=== PATIENT | male | born 1965 | race African-American/Black ===

== ENCOUNTER 2016-05-13 14:09 | Emergency (ER) | payer OTHER ==
[~2016-05-13] VITALS: Ht 172.7 cm; Wt 63.5 kg
--- NOTE | ~2016-05-13 | EKG ---
[address] [place] [address] ELECTROCARDIOGRAM REPORT Name: AKOSUA CHAND, Room #: REG [facility]#: [id number] Admission: 05/13/16 Attend Phys: Discharge: Date of : 61 Report #: [id number] THIS REPORT FOR: //name// [facility] ED Test Date: 2016-05-13 Test Time: 15:16:08 Pat Name: AKOSUA CHAND Department: Room: Gender: Lapel Padder: MZOOK : 1965 Requested By: Francheska Valentine Order Number: [id number] MD: Jd Francis Measurements Intervals [place] Rate: 92 P: 70 OR: 172 QRS: 82 QRSD: 77 T: 18 QT: 356 QTc: 441 Interpretive Statements Sinus rhythm LAE, consider biatrial enlargement Borderline T wave abnormalities Minimal ST elevation, lateral leads No previous ECG available for comparison Electronically Signed On 05-13-2016 16:53:07 [employer]STRUCTOR [employer] by Jd Francis [email or web address] <ELECTRONICALLY SIGNED> By: Jd Francis MD 05/13/16 1653 1516 1516 Jd Francis MD /MAI
[2016-05-13 15:02] LABS: URINE BILIRUBIN NEGATIVE (Negative); URINE BLOOD NEGATIVE (Negative); URINE COLOR YELLOW; URINE GLUCOSE-RANDOM* NEGATIVE (Negative); URINE KETONES NEGATIVE (Negative); URINE NITRITE NEGATIVE (Negative); URINE PROTEIN (DIPSTICK) NEGATIVE (Negative); URINE SPECIFIC GRAVITY <= 1.005 (1.003-1.035); URINE UROBILINOGEN 0.2 E.U./dl (0.2-1.0)
[2016-05-13] MEDS ORDERED: FLOMAX0.4 MG PO (15:30)
[2016-05-13] MEDS ORDERED: NEURONTIN 300300 M1 PO (15:30)
[2016-05-13] MEDS ORDERED: NORVASC5 MG PO (15:30)
[2016-05-13] MEDS ORDERED: CARVEDILOL6.25 MG PO (15:31)
[2016-05-13] MEDS ORDERED: TOPROL XL25 MG PO (15:31)
[2016-05-13 15:40] LABS: ABSOLUTE NEUTROPHILS 2.3 thou/uL (1.4-8.2); BASOPHILS 0.7 % (0.0-2.0); EOSINOPHILS 6.9 % (0.0-3.0); HEMATOCRIT 38.3 % (42.0-52.0); LYMPHOCYTES 49.8 % (24.0-44.0); MCH 28.2 pg (26.0-34.0); MCHC 33.9 % (28.0-37.0); MCV 83.3 fL (80.0-100.0); MONOCYTES 7.8 % (1.0-8.0); PLATELET COUNT 416 thou/uL (150-400); POLYS 34.8 % (36.0-66.0); WBC 6.6 thou/uL (4.0-11.0)
[2016-05-13 15:43] LABS: MANUAL DIFF NO
[2016-05-13 15:56] LABS: ANION GAP 12 mmol/L (7-16); BUN 8 mg/dL (7-18); CALCIUM 8.4 mg/dL (8.5-10.1); CHLORIDE 108 mmol/L (98-107); CO2 27 mmol/L (21-32); GLUCOSE 89 mg/dL (70-99); POTASSIUM 4.2 mmol/L (3.5-5.1); SODIUM 147 mmol/L (136-145)
[2016-05-13 16:04] LABS: ALBUMIN 3.4 g/dL (3.4-5.0); ALKALINE PHOSPHATASE 100 U/L (46-116); SGOT 20 U/L (15-37); SGPT 16 U/L (30-65); TOTAL BILIRUBIN 0.2 mg/dL (<0.1-1.0); TOTAL PROTEIN 7.1 g/dL (6.4-8.2); TROPONIN-I < 0.04 ng/mL (<0.04-0.07)
[2016-05-13 16:40] LABS: METHADONE Negative (Negative)
[2016-05-13 16:51] LABS: AMP/METHAMP Negative (Negative); BARBITURATES Negative (Negative); BENZODIAZEPINES Negative (Negative); COCAINE Negative (Negative); OPIATES Negative (Negative); PCP Negative (Negative); THC Negative (Negative)
[2016-05-13 16:57] VITALS: BP 92/64
== END 2016-05-13 16:57 | disposition home or self-care (01) ==
LOC: ER 14:09
PROVIDERS: Nurse Practitioner Family
DX: R55 Syncope and collapse (principal); Z88.8 Allergy status to other drugs, medicaments and biological substances; F17.210 Nicotine dependence, cigarettes, uncomplicated; F10.99 Alcohol use, unspecified with unspecified alcohol-induced disorder; F12.90 Cannabis use, unspecified, uncomplicated